=== PATIENT | male | born 1955 | race Caucasian/White ===

== ENCOUNTER → 2017-10-21 | Outpatient (CLI) | payer OTHER ==
[~2017-10-21] MED LIST: OMNIPAQUE 350 MG/ML, 100ML BOTTLE ONE
== END | disposition home or self-care (01) ==
LOC: CFH 13:59 → EDSTATUS 15:45
PROVIDERS: ATTEND Internal Medicine
DX: C49.0 Malignant neoplasm of connective and soft tissue of head, face and neck (principal)
CPT/HCPCS: 70491; 82565; Q9967

== ENCOUNTER 2017-11-15 08:45 | Day surgery (SDC) | payer OTHER ==
[~2017-11-15] VITALS: Ht 177.8 cm; Wt 89.9 kg
[~2017-11-15 08:45] MED LIST changes: +CALCIUM PO; +DUTA0.5C PO; +FLUT9.9S NAS; +LISI-170 PO; +OMEP-110 PO; -OMNIPAQUE 350 MG/ML, 100ML BOTTLE ONE; +OXYMETAZOLINE NASAL SPRAY 0.05%, 15ML ONE; +SIMV10TA3 PO; +TRAM50TA2 PO; +TRYP500T PO; +TUMS PO; +UBID100C10 PO; +VITAMIN D3 PO
[2017-11-15] MEDS ORDERED: FENTANYL PF 100 MCG/2ML ONE ×2 (09:09→11:01)
[2017-11-15] MEDS ORDERED: LACTATED RINGERS 1,000 ML IV SCH (09:09)
[2017-11-15] MEDS ORDERED: MIDAZOLAM 1 MG/ML, 2ML ONE (09:09)
[2017-11-15] MEDS ORDERED: EPINEPHRINE 1 MG/ML, 1ML ONE (09:18)
[2017-11-15] MEDS ORDERED: EPINEPHRINE TOPICAL SOLN 1 MG/ML, 30ML ONE (09:18)
[2017-11-15 09:31] VITALS: BP 118/78
[2017-11-15] MEDS ORDERED: LIDOCAINE 1%-EPI 1:100K, 30ML INFIL ONE (10:55)
[2017-11-15] MEDS ORDERED: SUCCINYLCHOLINE 20 MG/ML, 10ML ONE (10:59)
[2017-11-15] MEDS ORDERED: ROCURONIUM 10MG/ML,5ML ONE (10:59)
[2017-11-15] MEDS ORDERED: CEFAZOLIN 1,000 MG ONE ×2 (10:59)
[2017-11-15] MEDS ORDERED: PROPOFOL 10 MG/ML, 20ML ONE (10:59)
[2017-11-15] MEDS ORDERED: LIDOCAINE 1%-EPI 1:100K, 30ML ONE (11:08)
[2017-11-15] MEDS ORDERED: ALBUTEROL SULFATE 2.5 MG/3 ML NPPB PRN (11:30)
[2017-11-15] MEDS ORDERED: ACETAMINOPHEN 325 MG TABLET PO PRN (11:30)
[2017-11-15] MEDS ORDERED: MORPHINE SULFATE 4 MG/ML, 1ML IVPush PRN (11:30)
[2017-11-15] MEDS ORDERED: OXYcodone 5 MG/5 ML ORAL.SOL UDC PO PRN (11:30)
[2017-11-15] MEDS ORDERED: MEPERIDINE/PF 25MG/0.5ML IVPush PRN (11:30)
[2017-11-15] MEDS ORDERED: PROMETHAZINE 25 MG/ML, 1ML IV PRN (11:30)
[2017-11-15] MEDS ORDERED: FENTANYL PF 100 MCG/2ML IV PRN (11:30)
[2017-11-15] MEDS ORDERED: OXYcodone 5 MG/5 ML ORAL.SOL UDC ONE (11:36)
[2017-11-15] MEDS ORDERED: ACETAMINOPHEN 650 MG/20.3 ML UDC ONE (11:36)
== END 2017-11-15 13:37 | disposition home or self-care (01) ==
LOC: OUT 08:45
PROVIDERS: ATTEND Otolaryngology
DX: C09.9 Malignant neoplasm of tonsil, unspecified (principal); C79.2 Secondary malignant neoplasm of skin; N40.0 Benign prostatic hyperplasia without lower urinary tract symptoms; K21.9 Gastro-esophageal reflux disease without esophagitis; I10 Essential (primary) hypertension; E78.00 Pure hypercholesterolemia, unspecified; J44.9 Chronic obstructive pulmonary disease, unspecified; Z72.89 Other problems related to lifestyle; Z98.890 Other specified postprocedural states; Z79.899 Other long term (current) drug therapy
CPT/HCPCS: 31535; 42826; 88304; 88305; 88331; J0171; J0330; J0690; J2250; J2704; J3010; J3490; J7120